=== PATIENT | female | born 1995 | race Two or more races ===

== ENCOUNTER 2018-06-24 12:33 | Emergency (ER) | payer OTHER ==
[~2018-06-24] VITALS: Ht 149.9 cm; Wt 95.3 kg
[2018-06-24 12:44] VITALS: BP 135/108; Ht 149.9 cm; Wt 95.3 kg
== END 2018-06-24 16:26 | disposition home or self-care (01) ==
LOC: ED 12:33
DX: S93.601A Unspecified sprain of right foot, initial encounter (principal); F17.210 Nicotine dependence, cigarettes, uncomplicated; X50.1XXA Overexertion from prolonged static or awkward postures, initial encounter; Y93.89 Activity, other specified; Y92.89 Other specified places as the place of occurrence of the external cause; Y99.8 Other external cause status
CPT/HCPCS: 99406

== ENCOUNTER 2018-10-04 02:22 | Emergency (ER) | payer OTHER ==
[~2018-10-04] VITALS: Ht 152.4 cm; Wt 102.5 kg
[2018-10-04 02:24] VITALS: Ht 152.4 cm; Wt 102.5 kg
[2018-10-04 04:17] VITALS: BP 113/60
== END 2018-10-04 04:17 | disposition home or self-care (01) ==
LOC: ED 02:22
DX: R07.89 Other chest pain (principal); N39.0 Urinary tract infection, site not specified
CPT/HCPCS: J1885

== ENCOUNTER 2018-10-05 08:58 | Emergency (ER) | payer OTHER ==
[~2018-10-05] VITALS: Ht 152.4 cm; Wt 102.1 kg
[2018-10-05 09:03] VITALS: Ht 152.4 cm; Wt 102.1 kg
[2018-10-05 10:06] LABS: BASOPHIL % 0.5 % (0-2); PLATELET COUNT 360 x10^3mcL (130-400)
[2018-10-05 10:19] LABS: CALCIUM 8.4 mg/dL (8.5-10.1); CHLORIDE SERUM 108 mmol/L (98-107); CREATININE SERUM 0.7 mg/dL (0.6-1.0); GFR1 > 60 mL/min; GLUCOSE SERUM 98 mg/dL (74-106); POTASSIUM SERUM 3.6 mmol/L (3.5-5.1); SODIUM SERUM 142 mmol/L (136-145)
[2018-10-05 10:28] LABS: AMPHETAMINE QUAL UR NONE DETECTED (See below)
[2018-10-05 10:31] LABS: ALKALINE PHOSPHATASE 63 U/L (46-116); ALT/SGPT 28 U/L (14-59); AST/SGOT 14 U/L (15-37); BILIRUBIN TOTAL 0.56 mg/dL (0.20-1.00); CHOLESTEROL 138 mg/dL (<200); LIPASE 102 IU/L (73-393); T4(THYROXINE) 9.7 ug/dL (4.7-13.3); TOTAL PROTEIN, SERUM 7.9 g/dL (6.4-8.2)
[2018-10-05 10:34] LABS: ALBUMIN 3.3 g/dL (3.4-5.0); HDL CHOLESTEROL 34 mg/dL (40-60)
[2018-10-05 11:04] LABS: UA SPECIFIC GRAVITY >=1.030 (1.005-1.035); microscopic required? YES; urine erythrocyte 3+ (NEGATIVE)
[2018-10-05 12:48] VITALS: BP 105/63
== END 2018-10-05 12:48 | disposition home or self-care (01) ==
LOC: ED 08:58
PROVIDERS: Emergency Medicine
DX: R53.1 Weakness (principal); R55 Syncope and collapse; N39.0 Urinary tract infection, site not specified; E66.01 Morbid (severe) obesity due to excess calories; Z68.41 Body mass index [BMI] 40.0-44.9, adult
CPT/HCPCS: 82962; 85378; J0696; J7030; J7060

== ENCOUNTER 2018-10-16 23:28 | Emergency (ER) | payer OTHER ==
[~2018-10-16] VITALS: Ht 152.4 cm; Wt 102.5 kg
[2018-10-16 23:34] VITALS: Ht 152.4 cm; Wt 102.5 kg
[2018-10-17 00:07] LABS: BASOPHIL % 0.9 % (0-2); PLATELET COUNT 351 x10^3mcL (130-400); RED CELL DISTRIBUTION WIDTH 13.1 % (11.5-14.5)
[2018-10-17 00:15] LABS: CALCIUM 8.7 mg/dL (8.5-10.1); CARBON DIOXIDE 19.3 mmol/L (21-32); CHLORIDE SERUM 105 mmol/L (98-107); CREATININE SERUM 0.6 mg/dL (0.6-1.0); GFR1 > 60 mL/min; GLUCOSE SERUM 125 mg/dL (74-106); POTASSIUM SERUM 3.3 mmol/L (3.5-5.1); SODIUM SERUM 142 mmol/L (136-145)
[2018-10-17 00:20] LABS: ALBUMIN 3.3 g/dL (3.4-5.0); ALKALINE PHOSPHATASE 66 U/L (46-116); ALT/SGPT 36 U/L (14-59); AST/SGOT 23 U/L (15-37); BILIRUBIN TOTAL 0.1 mg/dL (0.20-1.00); TOTAL PROTEIN, SERUM 7.7 g/dL (6.4-8.2)
[2018-10-17 02:16] VITALS: BP 124/69
[2018-10-17 03:13] LABS: AMPHETAMINE QUAL UR NONE DETECTED (See below)
== END 2018-10-17 02:16 | disposition home or self-care (01) ==
LOC: ED 23:28
PROVIDERS: Emergency Medicine
DX: F41.9 Anxiety disorder, unspecified (principal); F32.9 Major depressive disorder, single episode, unspecified; R06.02 Shortness of breath; R09.89 Other specified symptoms and signs involving the circulatory and respiratory systems
CPT/HCPCS: 36415; G0480

== ENCOUNTER 2018-10-19 04:36 | Emergency (ER) | payer OTHER ==
[~2018-10-19] VITALS: Ht 152.4 cm; Wt 102.5 kg
[2018-10-19 04:43] VITALS: Ht 152.4 cm; Wt 102.5 kg
[2018-10-19 05:13] VITALS: BP 147/72
== END 2018-10-19 05:13 | disposition home or self-care (01) ==
LOC: ED 04:36
DX: F41.0 Panic disorder [episodic paroxysmal anxiety] (principal)
CPT/HCPCS: Q0163

== ENCOUNTER 2018-11-22 00:19 | Emergency (ER) | payer OTHER ==
[~2018-11-22] VITALS: Ht 152.4 cm; Wt 103.4 kg
[2018-11-22 00:25] VITALS: Ht 152.4 cm; Wt 103.4 kg
[2018-11-22 02:26] LABS: BASOPHIL % 0.2 % (0-2); RED CELL DISTRIBUTION WIDTH 12.8 % (11.5-14.5)
[2018-11-22 02:33] LABS: CALCIUM 8.3 mg/dL (8.5-10.1); CARBON DIOXIDE 25.8 mmol/L (21-32); CHLORIDE SERUM 105 mmol/L (98-107); CREATININE SERUM 0.6 mg/dL (0.6-1.0); GFR1 > 60 mL/min; GLUCOSE SERUM 115 mg/dL (74-106); POTASSIUM SERUM 3.9 mmol/L (3.5-5.1); SODIUM SERUM 143 mmol/L (136-145)
[2018-11-22 02:36] LABS: PLATELET COUNT 422 x10^3mcL (130-400)
[2018-11-22 02:40] LABS: ALBUMIN 3.6 g/dL (3.4-5.0); ALKALINE PHOSPHATASE 73 U/L (46-116); ALT/SGPT 48 U/L (14-59); AST/SGOT 34 U/L (15-37); BILIRUBIN TOTAL 0.2 mg/dL (0.20-1.00)
[2018-11-22 02:44] LABS: TOTAL PROTEIN, SERUM 8.7 g/dL (6.4-8.2)
[2018-11-22 02:59] LABS: AMPHETAMINE QUAL UR NONE DETECTED (See below)
[2018-11-22 09:39] VITALS: BP 113/71
== END 2018-11-22 09:39 | disposition home or self-care (01) ==
LOC: ED 00:19
PROVIDERS: Emergency Medicine
DX: F32.9 Major depressive disorder, single episode, unspecified (principal); F41.0 Panic disorder [episodic paroxysmal anxiety]
CPT/HCPCS: 36415; G0480; Q0162

== ENCOUNTER 2019-01-10 05:24 | Emergency (ER) | payer OTHER ==
[~2019-01-10] VITALS: Ht 152.4 cm; Wt 99.8 kg
[2019-01-10 05:30] VITALS: Ht 152.4 cm; Wt 99.8 kg
[2019-01-10 07:26] VITALS: BP 131/75
== END 2019-01-10 07:26 | disposition home or self-care (01) ==
LOC: ED 05:24
DX: S63.502A Unspecified sprain of left wrist, initial encounter (principal); S93.401A Sprain of unspecified ligament of right ankle, initial encounter; F41.9 Anxiety disorder, unspecified; F32.9 Major depressive disorder, single episode, unspecified; W22.8XXA Striking against or struck by other objects, initial encounter; Y93.89 Activity, other specified; Y92.89 Other specified places as the place of occurrence of the external cause; Y99.8 Other external cause status
CPT/HCPCS: Q0162

== ENCOUNTER 2019-02-21 21:00 | Emergency (ER) | payer OTHER ==
[~2019-02-21] VITALS: Ht 152.4 cm; Wt 95.3 kg
[2019-02-21 21:08] VITALS: Ht 152.4 cm; Wt 95.3 kg
[2019-02-21 22:09] VITALS: BP 123/75
== END 2019-02-21 22:53 | disposition home or self-care (01) ==
LOC: ED 21:00
DX: T65.891A Toxic effect of other specified substances, accidental (unintentional), initial encounter (principal); F12.20 Cannabis dependence, uncomplicated; E66.01 Morbid (severe) obesity due to excess calories; Z68.41 Body mass index [BMI] 40.0-44.9, adult; Y92.89 Other specified places as the place of occurrence of the external cause
CPT/HCPCS: Q0162

== ENCOUNTER 2019-06-05 22:49 | Emergency (ER) | payer OTHER ==
[~2019-06-05] VITALS: Ht 152.4 cm; Wt 101.2 kg
[2019-06-05 22:56] VITALS: Ht 152.4 cm; Wt 101.2 kg
[2019-06-06 00:05] LABS: CALCIUM 9.7 mg/dL (8.5-10.1); CARBON DIOXIDE 23.2 mmol/L (21-32); CHLORIDE SERUM 104 mmol/L (98-107); CREATININE SERUM 0.6 mg/dL (0.6-1.0); GFR1 > 60 mL/min; GLUCOSE SERUM 83 mg/dL (74-106); POTASSIUM SERUM 3.2 mmol/L (3.5-5.1); SODIUM SERUM 142 mmol/L (136-145)
[2019-06-06 00:06] LABS: BASOPHIL % 0.4 % (0-2); PLATELET COUNT 366 x10^3mcL (130-400); RED CELL DISTRIBUTION WIDTH 13.5 % (11.5-14.5)
[2019-06-06 00:09] LABS: ALKALINE PHOSPHATASE 64 U/L (46-116); ALT/SGPT 39 U/L (14-59); AST/SGOT 25 U/L (15-37); BILIRUBIN TOTAL 0.7 mg/dL (0.20-1.00)
[2019-06-06 00:10] LABS: UA SPECIFIC GRAVITY >=1.030 (1.005-1.035); microscopic required? YES; urine erythrocyte 3+ (NEGATIVE)
[2019-06-06 00:11] LABS: TOTAL PROTEIN, SERUM 8.7 g/dL (6.4-8.2)
[2019-06-06 00:18] LABS: AMPHETAMINE QUAL UR NONE DETECTED (See below)
[2019-06-06 02:12] VITALS: BP 125/70
== END 2019-06-06 02:12 | disposition home or self-care (01) ==
LOC: ED 22:49
PROVIDERS: Student in an Organized Health Care Education/Training Program
DX: F41.9 Anxiety disorder, unspecified (principal); R05 Cough; R07.89 Other chest pain; F32.9 Major depressive disorder, single episode, unspecified
CPT/HCPCS: 36415; 85378; J7030; Q0092

== ENCOUNTER 2019-08-04 23:36 | Inpatient (IN) | payer OTHER ==
[~2019-08-04] VITALS: Ht 152.4 cm; Wt 99.6 kg
[2019-08-04 23:48] VITALS: Ht 152.4 cm; Wt 99.6 kg
--- NOTE | 2019-08-05 00:02 | NUR ---
PT BIBA ALS UNIT, PER MEDIC, PT HAD WITNESSED TONIC CLONIC SEIZURE LASTING 30 MINS WHILE AT HOME. PT FELL OFF BED, NO TRAUMA NOTED. PT RECEIVED 5MG VERSED IM , PT REPORTS CHEST PAIN 6/10 FROM CHEST WALL RUB BY MEDIC, PT REPORTS PERIUMBILICAL PAIN, LEIVA, N/V/D. PER MEDIC, VITAL SIGNS WNL, BS 97. PT DENIES SOB, COUGH, FEVER. UPON ASSESSMENT, PT VERBALIZED SHE WOULD LIKE PSYCH EVAL TO GO TO MENTAL FACILITY, PT REPORTS SHE FEELS DEPRESSED AND HAS CUT HERSELF DUE TO ABANDONMENT ISSUES. SUPERFICIAL CUTS NOTED ON BILATERAL LEGS AND LEFT ARM. PT IS A&OX4 WITH E/U RESPS, PT ABLE TO MOVE BILATERAL UPPER AND LOWER EXTREMITIES. PT DENIES BLURRED VISION BUT STATES "I JUST FEEL DIZZY". PT NOTED WITH TEARS, STATES " I FEEL REALLY REALLY DEPRESSED RIGHT NOW". PT PLACED ON FULL CM, GOWN, SEIZURE PRECAUTIONS.
[2019-08-05 00:51] LABS: BASOPHIL % 1.1 % (0-2); PLATELET COUNT 375 x10^3mcL (130-400); RED CELL DISTRIBUTION WIDTH 13.3 % (11.5-14.5)
[2019-08-05 01:03] LABS: CALCIUM 8.6 mg/dL (8.5-10.1); CARBON DIOXIDE 24.6 mmol/L (21-32); CHLORIDE SERUM 105 mmol/L (98-107); CREATININE SERUM 0.7 mg/dL (0.6-1.0); GFR1 > 60 mL/min; GLUCOSE SERUM 123 mg/dL (74-106); POTASSIUM SERUM 3.9 mmol/L (3.5-5.1); SODIUM SERUM 141 mmol/L (136-145)
--- NOTE | 2019-08-05 01:05 | NUR ---
PT SPEAKING WITH TELE PSYCH AT THIS TIME
[2019-08-05 01:07] LABS: ALKALINE PHOSPHATASE 82 U/L (46-116); ALT/SGPT 27 U/L (14-59); AST/SGOT 15 U/L (15-37); TOTAL PROTEIN, SERUM 7.9 g/dL (6.4-8.2)
[2019-08-05 01:12] LABS: ALBUMIN 3.3 g/dL (3.4-5.0)
--- NOTE | 2019-08-05 02:23 | NUR ---
PATIENT PLACED ON EBED AGUIRRE AT THIS TIME.
--- NOTE | 2019-08-05 03:13 | NUR ---
PT IS RESTING IN ED [facility] AT THIS TIME. PT IS A/O X4. PT HAS CALL LIGHT WITHIN REACH. PT RESPS ARE E/U. PT IS IN VIEW OF NURSES STATION. NO ACD NOTED
--- NOTE | 2019-08-05 03:15 | NUR ---
PT PLACED ON A [facility]0 HOLD
--- NOTE | 2019-08-05 03:23 | NUR ---
PT BELONGINGS PLACED IN PT BAGS AND PLACED IN RADIO ROOM FOR SAFE KEEPING. PT MADE AWARE.
[2019-08-05 03:25] LABS: AMPHETAMINE QUAL UR NONE DETECTED (See below)
--- NOTE | 2019-08-05 04:07 | NUR ---
PT TRANSPORTED TO CT SCAN VIA [facility]
--- NOTE | 2019-08-05 04:27 | NUR ---
PT RETURNED FROM CT SCAN. NO DISTRESS
--- NOTE | 2019-08-05 05:16 | NUR ---
PT OBSERVED LAYING IN ED [facility]MA AT THIS TIME AND TALKING ON HER CELL PHONE. PT IS COOPERATIVE. PT IS A/O X4. PT RESPS ARE E/U. PT IS IN SIGHT FROM NURSES STATION. NO ACD NOTED
--- NOTE | 2019-08-05 07:31 | NUR ---
REPORT GIVEN TO ANKUR TRIPP TO ASSUME CARE OF PATIENT.
--- NOTE | 2019-08-05 07:31 | NUR ---
RECEIVED REPORT FROM FLOR TRIPP
--- NOTE | 2019-08-05 07:48 | NUR ---
PT LAYING IN BED, AAOX4, NO ACUTE DISTRESS NOTED, RR E/U, DENIES SI AND HI, STATES SHE HAS BEEN FEELING DEPRESSED, CURRENTLY STARTED TAKING [employer]OLOFT BUT DID NOT WORK, STATES SHE FEELS LONELY, WILLING TO SEEK HEP, CALM, COOPERATIVE, OFFERED FLUIDS, SNACKS, TOILETING, SAFETY AND SEIZURE PRECAUTIONS IN PLACE, IV ACCESS ESTABLISHED, CURRENTLY ON 5150 HOLD, IN VIEW OF STAFF, WILL MONITOR.
--- NOTE | 2019-08-05 12:12 | NUR ---
PT LAYING IN BED, APPEARS TO BE SLEEPING, CHEST RISE AND FALL, NO ACUTE DISTRESS NOTED, SAFETY AND SEIZURE PRECAUTIONS IN PLACE, IN VIEW OF STAFF WILL CONTINUE TO MONITOR.
--- NOTE | 2019-08-05 12:16 | NUR ---
PT SITTING UP IN BED, EATING BREAKFAST, NO ACUTE DISTRESS NOTED, SAFETY AND SEIZURE PRECAUTIONS IN PLACE, IN VIEW OF STAFF, WILL CONINTUE TO MONITOR.
--- NOTE | 2019-08-05 15:19 | NUR ---
PT LAYING IN BED, AAOX4, APPEARS TO BE SLEEPING, AROUSABLE TO TOUCH, DENIES SI AND HI AT THIS TIME, OFFERED SNACKS, FLUIDS, AND TOILETING, INSTRUCTED PT TO VERBALIZED FEELINGS, PT CALM, COOPERATIVE, IN VIEW OF STAFF, SAFETY PRECAUTIONS IN PLACE, WILL CONTINUE TO MONITOR
--- NOTE | 2019-08-05 15:24 | NUR ---
PER PJ TITLE INSPECTOR, WAITING FOR PLACEMENT, WILL UPDATE PT OF POC
--- NOTE | 2019-08-05 15:26 | NUR ---
SEIZURE PRECAUTIONS IN PLACE,
--- NOTE | 2019-08-05 18:30 | NUR ---
PT SITTING UP IN BED, AAOX4, NO ACUTE DISTRES NOTED, PT EATING DINNER, PROVIDED FLUIDS, DENIES SI AND HI, SAFETY AND SEIZURE PRCAUTIONS IN PLACE, OFFERED TOILERTING, VSS, IN VIEW OF STAFF, WILL CONTINUE TO MONITOR.
--- NOTE | 2019-08-05 18:56 | NUR ---
PT AMBULATED TO THE RESTROOM WITH STEADY GAIT ACCOMPANIED BY QASIM PASCUAL
--- NOTE | 2019-08-05 19:16 | NUR ---
REPORT GIVEN TO FLOR TRIPP TO RESUME CARE OF PT
--- NOTE | 2019-08-05 19:42 | NUR ---
RECEIVED PT REPORT FROM QASIM FRAZIER. MYSELF AND QASIM RAY WILL ASSUME PRIMARY CARE OF THE PT. PT IS OBSERVED LAYING IN ED [facility] AT THIS TIME. PT IS A/O X4. PT RESPS ARE E/U. NO ACD NOTED
--- NOTE | 2019-08-05 21:05 | NUR ---
PT IS A&OX4, WITH E/U BREATHS. PT NOTED RESTING IN POSITION OF COMFORT ON RIGHT LATERAL SIDE ON HER PHONE. PT IS IN GOOD SPIRITS, AND REPORTS "I FEEL GOOD, I'M STILL WAITING FOR A BED (TO BE TRANSFERRED TO) BUT I'M COMFORTABLE HERE".
--- NOTE | 2019-08-05 22:41 | NUR ---
PT IN POSITION OF COMFORT SLEEPING ON LEFT LATERAL SIDE. PT'S CURTAINS ARE OPEN AND PT IS WITHIN SITE OF NURSE'S STATION.
--- NOTE | 2019-08-06 00:34 | NUR ---
PT RESTING IN POSITION OF COMFORT LAYING ON LEFT LATERAL SIDE WITH CALL LIGHT WITHIN REACH. PT'S CURTAIN IS OPEN AND WITHIN SIGHT OF NURSE'S STATION.
--- NOTE | 2019-08-06 02:23 | NUR ---
PT LAYING ON LEFT LATERAL SIDE WATCHING A MOVIE ON HER CELL PHONE. PT IS A&OX4, BREATHING WITH E/U BREATHS. NO ACD NOTED. DIMMED PT'S LIGHTS FOR COMFORT.
--- NOTE | 2019-08-06 04:34 | NUR ---
PT A&OX4 WITH E/U RESPS. PT REPORTS: "I AM HAPPY BECAUSE I AM WATCHING AN POLISH SHOW ABOUT A GIRL THAT IS GOING THROUGH WHAT I'M GOING THROUGH SO IT'S HELPING ME. AND I'M HAPPY THAT I GOT TO TALK TO MY BOYFRIEND BECAUSE HE IS UP LATE PLAYING VIDEO GAMES AND SAYS HE CAN'T WAIT FOR ME TO COME HOME". PT'S CURTAINS ARE OPEN AND PT IS WITHIN DIRECT SIGHT OF THE NURSE'S STATION.
[2019-08-06 05:14] LABS: BASOPHIL % 0.5 % (0-2); PLATELET COUNT 393 x10^3mcL (130-400); RED CELL DISTRIBUTION WIDTH 13.7 % (11.5-14.5)
[2019-08-06 05:39] LABS: CALCIUM 8.9 mg/dL (8.5-10.1); CARBON DIOXIDE 22.9 mmol/L (21-32); CHLORIDE SERUM 103 mmol/L (98-107); CREATININE SERUM 0.7 mg/dL (0.6-1.0); GFR1 > 60 mL/min; GLUCOSE SERUM 91 mg/dL (74-106); MAGNESIUM 1.8 mg/dL (1.8-2.4); PHOSPHOROUS 3.9 mg/dL (2.5-4.9); POTASSIUM SERUM 3.7 mmol/L (3.5-5.1); SODIUM SERUM 139 mmol/L (136-145)
[2019-08-06] MEDS ORDERED: TRA50 PO (06:19)
--- NOTE | 2019-08-06 06:28 | NUR ---
PT A&OX4 FOUND SITTING IN HIGH FOWLERS POSITION SPEAKING ON HER CELL PHONE. PT IS SPEAKING CLEARLY. FLUSHED PT'S HEP LOCK, LINE IS PATENT, NO INFILTRATION NOTED. PT IS AWAITING TO BE TRANSFERRED TO MED SURG. CURTAINS ARE OPEN, PT IS WITHIN SIGHT OF THE NURSE'S STATION. PT IS CALM AND COOPERATIVE, PT VERBALIZED "THANK YOU FOR MAKING ME FEEL COMFORTABLE HERE".
--- NOTE | 2019-08-06 07:11 | NUR ---
CALLED REPORT TO LUIS TRIPP IN MED SURG TO ASSUME CARE OF PATIENT.
--- NOTE | 2019-08-06 07:35 | NUR ---
RECIEVED PT FROM ED. PT IN BED AWAKE AND ALERT. ASSESSMENT COMPLETED, VITAL SIGNS OBTAINED. PT IS CALM AND DENIES SUICIDAL THOUGHTS AT THIS TIME. PT ORIENTED TO ROOM AND INSTRUCTED ON USE OF CALL LIGHT. PT ENCOURAGED TO USE IF ASSISTANCE IS NEEDED.
[2019-08-06 07:55] VITALS: BP 130/81
[2019-08-06 12:30] VITALS: BP 122/53
--- NOTE | 2019-08-06 12:49 | NUR ---
Dr Camejo notifed unable to do eeg
--- NOTE | 2019-08-06 13:41 | NUR ---
CALLED TO SET UP TELE CONSULT FOR PT. AWAITING CALL BACK FOR CONSULT.
--- NOTE | 2019-08-06 14:11 | NUR ---
PT HAD TELE CONSULT WITH DR DAVID. PER DR DAVID DO MRI BRAIN WITH AND WITHOUT CONTRAST, HAVE EEG, IMPLEMENT SEIZURE PRECAUTIONS AND START DEPAKOTE 500MG. DR DAVID GAVE ALL HIS RECOMMENDATIONS TO DR AQUINO.
--- NOTE | 2019-08-06 14:41 | NUR ---
Pt referred to [facility], [facility], [place], [place], [place]. No openings at this time.
[2019-08-06 16:30] VITALS: BP 111/64
--- NOTE | 2019-08-06 18:43 | NUR ---
PT IN BED RESTING. PT HAS NO PAIN OR CONCERN AT THIS TIME. PT AWARE OF CHANGE OF SHIFT SOON. PT ENCOURAGED TO USE CALL LIGHT IF NEEDED. SITTER AT BEDSIDE. SEIZURE PRECAUTIONS STILL IN PLACE.
--- NOTE | 2019-08-06 19:59 | NUR ---
RECEIVED PT SITTING IN CHAIR AT BEDISDE, TALKING TO ROOMMATE. PT IS AAOX4. SEIZURE PRECAUTIONS IN PLACE FOR HX OF SEIZURES. BREATHING IS EVEN AND UNLABORED ON RA. LUNG SOUNDS CTA. DENIES SOB. ABD IS SOFT AND NONDISTENDED. BS ACTIVE. DENIES N/V/D/C. AMBULATORY. SKIN INTACT. DENIES ANY PAIN AT THIS TIME. IV TO RH PATENT AND INTACT. NO ERYTHEMA NOTED. DENIES ANY SI AT THIS TIME. SITTER AT BEDSIDE. BED IN LOWEST POSITION. CALL LIGHT WITHIN REACH. WILL CONTINUE TO MONITOR.
[2019-08-06 20:05] VITALS: BP 118/77
--- NOTE | 2019-08-06 21:00 | NUR ---
SPOKE TO DR OLIVA REGARDING PT BEING ADMITTED TELE PT, BUT PT DOES NOT HAVE TELE MONITOR PLACEMENT. PER DR OLIVA WILL TRANSFER TO M/S. WILL MAKE CHARGE NURSE TANIYA AWARE.
--- NOTE | 2019-08-06 21:15 | NUR ---
ROUTINE MEDICATIONS ADMINISTERED AND TOLERATED WELL. NO ACUTE DISTRESS NOTED. BREATHING IS EVEN AND UNLABORED ON RA. NO RESP DISTRESS NOTED. DENIES SI AT THIS TIME. DENIES PAIN AT THIS TIME. SITTER AT BEDSIDE. WILL CONTINUE TO MONITOR.
--- NOTE | 2019-08-07 00:50 | NUR ---
AMBIEN ADMINISTERED AT THIS TIME. BREATHING IS EVEN AND UNLABORED ON RA. NO RESP DISTRESS NOTED. PT C/O FEELING FEVERISH, ORAL TEMP READS 98.8. DENIES ANY PAIN AT THIS TIME. DENIES SI. SITTER AT BEDSIDE. WILL CONTINUE TO MONITOR.
[2019-08-07 05:03] VITALS: BP 114/52
--- NOTE | 2019-08-07 05:47 | NUR ---
PT SLEPT COMFORTABLY THROUGHOUT THE NIGHT WITH NO ACUTE EVENTS OCCURRING DURING THE SHIFT. COMFORT AND SAFETY MEASURES MAINTAINED. ALL NEEDS ASSESSED AND ATTENDED TO. SITTER AT BEDSIDE. PT DENIES ANY SI AT THIS TIME. WILL CONTINUE TO MONITOR AND ENDORSE CARE TO DAY SHIFT NURSE.
[2019-08-07 06:50] LABS: BASOPHIL % 0.3 % (0-2); PLATELET COUNT 375 x10^3mcL (130-400); RED CELL DISTRIBUTION WIDTH 13.5 % (11.5-14.5)
[2019-08-07 07:00] LABS: ALKALINE PHOSPHATASE 70 U/L (46-116); ALT/SGPT 22 U/L (14-59); AST/SGOT 14 U/L (15-37); BILIRUBIN TOTAL 0.6 mg/dL (0.20-1.00); CALCIUM 8.6 mg/dL (8.5-10.1); CARBON DIOXIDE 22.7 mmol/L (21-32); CHLORIDE SERUM 103 mmol/L (98-107); CREATININE SERUM 0.6 mg/dL (0.6-1.0); GFR1 > 60 mL/min; GLUCOSE SERUM 117 mg/dL (74-106); PHOSPHOROUS 3.7 mg/dL (2.5-4.9); POTASSIUM SERUM 3.4 mmol/L (3.5-5.1); SODIUM SERUM 137 mmol/L (136-145); TOTAL PROTEIN, SERUM 7.9 g/dL (6.4-8.2)
[2019-08-07 07:01] LABS: ALBUMIN 3.3 g/dL (3.4-5.0)
[2019-08-07 07:02] LABS: T3 TOTAL 1.91 ng/mL
--- NOTE | 2019-08-07 07:05 | NUR ---
RECIEVED PT RESTING IN BED WITH NO C/O PAIN OR DISTRESS. A/O X4 WITH NO LEIVA OR DIZZINESS. SITTER AT BEDSIDE. LUNGS CTAB WITH NO SOB. RIGHT HAND IV CDI AND PATENT. PT DENIES ANY SI AT THIS TIME. SAFETY PRECAUTIONS IN PLACE, CALL LIGHT WITHIN REACH, WILL MONITOR.
[2019-08-07 07:38] LABS: FREE T4 1.22 ng/dL (0.76-1.46); FREE THYROXINE INDEX 3.4 ug/dL (1.4-4.5); T4(THYROXINE) 10.2 ug/dL (4.7-13.3)
[2019-08-07 08:00] VITALS: BP 137/77
[2019-08-07] MEDS ORDERED: DIVALPROEX SOD500 M2 PO (14:14)
[2019-08-07] MEDS ORDERED: TRA50 PO (15:57)
[2019-08-07] MEDS ORDERED: SERTRALINE H20 MG/ML PO (15:57)
[2019-08-07 15:58] VITALS: BP 137/77
--- NOTE | 2019-08-07 16:49 | NUR ---
PT STABLE TO DISCHARGE PER MD ORDER. ALL DISCHARGE INSTRUCTIONS, EDUCATION, APPOINTMENTS, AND PRESCRIPTIONS GIVEN TO PT AND SHE VERBALIZES UNDERSTANDING. IV REMOVED WITH CATHETER INTACT, NO REDNESS OR INFLAMMATION NOTED. ID BAND REMOVED FROM ARM. PT ESCORTED DOWN TO LOBBY VIA WC BY YAJAIRA WITH ALL PERSONAL BELONGINGS IN HAND.
== END 2019-08-07 16:50 | disposition home or self-care (01) | DRG 101 ==
LOC: ED 23:36 → MU 08-06 03:51
PROVIDERS: Emergency Medicine; ADMIT Family Medicine; ATTEND Family Medicine
DX: G40.909 Epilepsy, unspecified, not intractable, without status epilepticus (principal); R45.851 Suicidal ideations; E44.1 Mild protein-calorie malnutrition; Z68.41 Body mass index [BMI] 40.0-44.9, adult; N39.498 Other specified urinary incontinence; F41.9 Anxiety disorder, unspecified; F32.9 Major depressive disorder, single episode, unspecified; F43.10 Post-traumatic stress disorder, unspecified; D72.829 Elevated white blood cell count, unspecified
CPT/HCPCS: 84439; G0378; G0480

== ENCOUNTER 2019-10-23 06:59 | Emergency (ER) | payer OTHER ==
[~2019-10-23] VITALS: Ht 162.6 cm; Wt 103.0 kg
[~2019-10-23 06:59] MED LIST: DIVALPROEX SOD500 M2 PO; SERTRALINE H20 MG/ML PO; TRA50 PO
[2019-10-23 07:10] VITALS: Ht 162.6 cm; Wt 103.0 kg
[2019-10-23 08:09] LABS: CALCIUM 9.1 mg/dL (8.5-10.1); CARBON DIOXIDE 25.4 mmol/L (21-32); CHLORIDE SERUM 104 mmol/L (98-107); CREATININE SERUM 0.7 mg/dL (0.6-1.0); GFR1 > 60 mL/min; GLUCOSE SERUM 102 mg/dL (74-106); POTASSIUM SERUM 3.6 mmol/L (3.5-5.1); SODIUM SERUM 140 mmol/L (136-145)
[2019-10-23 08:50] LABS: BASOPHIL % 0.3 % (0-2); RED CELL DISTRIBUTION WIDTH 13.4 % (11.5-14.5)
[2019-10-23 09:23] LABS: PLATELET COUNT 404 x10^3mcL (130-400)
[2019-10-23 09:49] VITALS: BP 132/71
== END 2019-10-23 09:50 | disposition home or self-care (01) ==
LOC: ED 06:59
PROVIDERS: Emergency Medicine
DX: R55 Syncope and collapse (principal); F43.0 Acute stress reaction
CPT/HCPCS: J1885

== ENCOUNTER 2020-01-16 10:43 | Emergency (ER) | payer OTHER ==
[~2020-01-16] VITALS: Ht 152.4 cm; Wt 106.6 kg
[2020-01-16 10:47] VITALS: Ht 152.4 cm; Wt 106.6 kg
[2020-01-16 13:37] VITALS: BP 116/78
== END 2020-01-16 13:35 | disposition other institution (70) ==
LOC: ED 10:43
DX: S51.811A Laceration without foreign body of right forearm, initial encounter (principal); Y04.8XXA Assault by other bodily force, initial encounter; Y93.89 Activity, other specified; Y92.89 Other specified places as the place of occurrence of the external cause; Y99.8 Other external cause status
CPT/HCPCS: 90715

== ENCOUNTER 2020-01-16 10:43 | Emergency (ER) | payer OTHER | END 2020-01-16 13:35 | disposition other institution (70) | LOC: ED 10:43 | DX: Z02.89 Encounter for other administrative examinations (principal) ==